=== PATIENT | female | born 1970 | race Caucasian/White ===

== ENCOUNTER 2018-02-11 11:16 | Emergency (ER) | payer OTHER ==
[2018-02-11 11:57] LABS: ADD MAN DIFF? NO
[2018-02-11 11:59] LABS: BASO # 0.1 x10^3/uL (0.0-0.2); BASO % 1 % (0-3); EOS # 0.3 x10^3/uL (0.0-0.7); EOS % 3 % (0-3); HEMATOCRIT 48.1 % (36.0-47.0); HEMOGLOBIN 16.6 g/dL (12.0-15.5); LYMPH # 2.2 x10^3/uL (1.0-4.8); LYMPH % 26 % (24-48); MEAN CORPUSCULAR HEMOGLOBIN 31 pg (25-35); MEAN CORPUSCULAR HGB CONC 35 g/dL (31-37); MEAN CORPUSCULAR VOLUME 91 fL (79-100); MONO # 0.5 x10^3/uL (0.0-1.1); MONO % 6 % (0-9); NEUT # 5.5 x10^3uL (1.8-7.7); NEUT % 64 % (31-73); PLATELET COUNT 360 x10^3/uL (140-400); RED CELL DISTRIBUTION WIDTH 13.4 % (11.5-14.5); WHITE BLOOD COUNT 8.5 x10^3/uL (4.0-11.0)
[2018-02-11 12:07] LABS: INR 0.9 (0.8-1.1); PROTHROMBIN TIME PATIENT 11.7 SEC (11.7-14.0)
[2018-02-11 12:09] LABS: ANION GAP 10 (6-14); BLOOD UREA NITROGEN 15 mg/dL (7-20); BUN/CREATININE RATIO 14 (6-20); CALCIUM 8.8 mg/dL (8.5-10.1); CARBON DIOXIDE 24 mmol/L (21-32); CHLORIDE 103 mmol/L (98-107); CREATININE 1.1 mg/dL (0.6-1.0); GFR 53.2; GLUCOSE 97 mg/dL (70-99); POTASSIUM 3.8 mmol/L (3.5-5.1); SODIUM 137 mmol/L (136-145)
[2018-02-11 12:10] LABS: D-DIMER 0.51 ug/mlFEU (0.00-0.50)
[2018-02-11 12:15] LABS: ALBUMIN 3.6 g/dL (3.4-5.0); ALBUMIN/GLOBULIN RATIO 0.9 (1.0-1.7); ALK PHOS 70 U/L (46-116); ALT (SGPT) 22 U/L (14-59); AST (SGOT) 14 U/L (15-37); TOTAL BILIRUBIN 0.6 mg/dL (0.2-1.0); TOTAL PROTEIN 7.7 g/dL (6.4-8.2)
[2018-02-11 12:17] LABS: TROPONINI < 0.017 ng/mL (0.000-0.055)
[2018-02-11 12:21] LABS: NT-PRO BNP 46 pg/mL (0-124)
[2018-02-11 12:23] LABS: URINE HCG POC HCG NEGATIVE (Negative)
[2018-02-11] MEDS: IPRATRPIUM/ALBUTEROL 0.5/2.5MG 3 ML NEBU. NEB (12:57)
[2018-02-11 13:34] LABS: BILIRUBIN,URINE NEGATIVE (NEG); CLARITY,URINE CLEAR; GLUCOSE,URINE NEGATIVE (NEG); NITRITE,URINE NEGATIVE (NEG); PROTEIN,URINE NEGATIVE (NEG-TRACE); UROBILINOGEN,URINE 0.2 mg/dL (0.2 mg/dL)
[2018-02-11 13:41] LABS: COLOR,URINE STRAW
[2018-02-11 13:43] LABS: BACTERIA,URINE FEW /HPF (0-FEW); RBC,URINE RARE /HPF (0-2); WBC,URINE OCC /HPF (0-4)
[2018-02-11 13:44] LABS: SQUAMOUS EPITHELIAL CELL,UR FEW /LPF
[2018-02-11] MEDS ORDERED: CONTRAST GIVEN. MC (13:45)
[2018-02-11] MEDS: IOHEXOL 300 MG/ML 100ML VIAL. IV (13:46)
== END 2018-02-11 15:13 | disposition home or self-care (01) ==
LOC: ER 11:16
DX: R06.02 Shortness of breath (principal); Z87.891 Personal history of nicotine dependence; E66.9 Obesity, unspecified; Z68.43 Body mass index [BMI] 50.0-59.9, adult; Z88.5 Allergy status to narcotic agent; Z88.8 Allergy status to other drugs, medicaments and biological substances
CPT/HCPCS: 36415; 71045; 71275; 80053; 81001; 81025; 83880; 84484; 85025; 85379; 85610; 93005; 94640; 99285-25; J7620; Q9967

== ENCOUNTER 2019-01-08 17:58 | Emergency (ER) | payer OTHER ==
[~2019-01-08] VITALS: Ht 162.6 cm; Wt 139.3 kg
[2019-01-08] MEDS ORDERED: LORazepam 1 MG TABLET PO ONE (19:15)
[2019-01-08 19:35] LABS: ALBUMIN 3.5 g/dL (3.4-5.0); ALBUMIN/GLOBULIN RATIO 0.9 (1.0-1.7); CREATININE 1.1 mg/dL (0.6-1.0); POTASSIUM 4.2 mmol/L (3.5-5.1); TOTAL BILIRUBIN 0.7 mg/dL (0.2-1.0); TOTAL PROTEIN 7.4 g/dL (6.4-8.2)
[2019-01-08 19:36] LABS: BASO # 0.1 x10^3/uL (0.0-0.2); BASO % 1 % (0-3); EOS # 0.2 x10^3/uL (0.0-0.7); EOS % 2 % (0-3); HEMATOCRIT 44.2 % (36.0-47.0); LYMPH # 2.4 x10^3/uL (1.0-4.8); LYMPH % 29 % (24-48); MEAN CORPUSCULAR HEMOGLOBIN 31 pg (25-35); MEAN CORPUSCULAR HGB CONC 34 g/dL (31-37); MEAN CORPUSCULAR VOLUME 91 fL (79-100); MONO # 0.8 x10^3/uL (0.0-1.1); MONO % 9 % (0-9); NEUT # 4.8 x10^3uL (1.8-7.7); NEUT % 58 % (31-73); PLATELET COUNT 354 x10^3/uL (140-400); RED BLOOD COUNT 4.85 x10^6/uL (3.50-5.40); RED CELL DISTRIBUTION WIDTH 12.9 % (11.5-14.5); WHITE BLOOD COUNT 8.3 x10^3/uL (4.0-11.0)
[2019-01-08 19:52] VITALS: BP 147/79
--- NOTE | 2019-01-08 20:08 | PHYS DOC ---
Past Medical History Past Medical History: Anxiety, Endometriosis, Hypertension, UTI Additional Past Medical Histor: PULMONARY NODULE Past Surgical History: Cholecystectomy Additional Past Surgical Histo: UTERINE ABLASION, D&C Additional Information: 2PPD Alcohol Use: None Drug Use: None Adult General Chief Complaint Chief Complaint: CHEST PAIN HPI HPI Patient is a 48 year old Female who is presenting with chest pain. She's had it for the last 3 days it feels, just dull on the left side associate with anxiety she took Klonopin she is used to taking lorazepam she has been short of breath she has sweaty palms and sweaty feet she just feels terrible overall the pain is current BEEN there pretty constantly for 3 days it is not exertional it is similar to last time she was here in the emergency room she is still smoking. Review of Systems Review of Systems Constitutional: Denies fever or chills [] Eyes: Denies change in visual acuity, redness, or eye pain [] HENT: Denies nasal congestion or sore throat [] GI: Denies abdominal pain, nausea, vomiting, bloody stools or diarrhea [] : Denies dysuria or hematuria [] Musculoskeletal: Denies back pain or joint pain [] Integument: Denies rash or skin lesions [] Neurologic: Denies headache, focal weakness or sensory changes [] Endocrine: Denies polyuria or polydipsia [] All other systems were reviewed and found to be within normal limits, except as documented in this note. Current Medications Current Medications Current Medications Medications (Trade) Dose Ordered Sig/Amaury Start Time Stop Time Status Last Admin Dose Admin Lorazepam (Ativan) 1 mg 1X ONCE 01/08/19 19:15 01/08/19 19:16 DC 01/08/19 19:23 1 MG Allergies Allergies Allergies Coded Allergies Type Severity Reaction Last Updated Verified diphenhydramine Allergy Severe ANAPHYLAXIS 02/11/18 Yes varenicline Allergy Severe stroke like symptoms 01/08/19 Yes clonazepam Allergy Intermediate 01/08/19 Yes hydrocodone Allergy Intermediate ANXIETY 02/11/18 Yes buspirone Adverse Reaction Intermediate dizziness 01/08/19 Yes hydroxyzine Adverse Reaction Intermediate night sweats, tremors 01/08/19 Yes Physical Exam Physical Exam Constitutional: Well developed, well nourished, no acute distress, non-toxic appearance. [] HENT: Normocephalic, atraumatic, bilateral external ears normal, oropharynx moist, no oral exudates, nose normal. [] Eyes: PERRLA, EOMI, conjunctiva normal, no discharge. [] Neck: Normal range of motion, no tenderness, supple, no stridor. [] Cardiovascular:Heart rate regular rhythm, no murmur [] Lungs & Thorax: Bilateral breath sounds clear to auscultation [] Abdomen: Bowel sounds normal, soft, no tenderness, no masses, no pulsatile masses. [] Skin: Warm, dry, no erythema, no rash. [] Back: No tenderness, no CVA tenderness. [] Extremities: No tenderness, no cyanosis, no clubbing, ROM intact, no edema. [] Neurologic: Alert and oriented X 3, normal motor function, normal sensory function, no focal deficits noted. [] Psychologic: Affect normal, judgement normal, mood normal. [] Current Patient Data Vital Signs Vital Signs Date Time Temp Pulse Resp B/P (MAP) Pulse Ox O2 Delivery O2 Flow Rate FiO2 01/08/19 18:30 98.7 84 20 196/107 (136) 96 Room Air 98.7 Lab Values Laboratory Tests Test 01/08/19 18:30 White Blood Count 8.3 x10^3/uL (4.0-11.0) Red Blood Count 4.85 x10^6/uL (3.50-5.40) Hemoglobin 15.0 g/dL (12.0-15.5) Hematocrit 44.2 % (36.0-47.0) Mean Corpuscular Volume 91 fL (79-100) Mean Corpuscular Hemoglobin 31 pg (25-35) Mean Corpuscular Hemoglobin Concent 34 g/dL (31-37) Red Cell Distribution Width 12.9 % (11.5-14.5) Platelet Count 354 x10^3/uL (140-400) Neutrophils (%) (Auto) 58 % (31-73) Lymphocytes (%) (Auto) 29 % (24-48) Monocytes (%) (Auto) 9 % (0-9) Eosinophils (%) (Auto) 2 % (0-3) Basophils (%) (Auto) 1 % (0-3) Neutrophils # (Auto) 4.8 x10^3uL (1.8-7.7) Lymphocytes # (Auto) 2.4 x10^3/uL (1.0-4.8) Monocytes # (Auto) 0.8 x10^3/uL (0.0-1.1) Eosinophils # (Auto) 0.2 x10^3/uL (0.0-0.7) Basophils # (Auto) 0.1 x10^3/uL (0.0-0.2) Maternal Serum HCG Beta Subunit < 1 mIU/mL (0-5) Sodium Level 139 mmol/L (136-145) Potassium Level 4.2 mmol/L (3.5-5.1) Chloride Level 103 mmol/L (98-107) Carbon Dioxide Level 28 mmol/L (21-32) Anion Gap 8 (6-14) Blood Urea Nitrogen 12 mg/dL (7-20) Creatinine 1.1 mg/dL (0.6-1.0) H Estimated GFR (Cockcroft-Gault) 53.0 BUN/Creatinine Ratio 11 (6-20) Glucose Level 96 mg/dL (70-99) Calcium Level 9.0 mg/dL (8.5-10.1) Total Bilirubin 0.7 mg/dL (0.2-1.0) Aspartate Amino Transferase (AST) 16 U/L (15-37) Alanine Aminotransferase (ALT) 25 U/L (14-59) Alkaline Phosphatase 60 U/L (46-116) Troponin I Quantitative < 0.017 ng/mL (0.000-0.055) Total Protein 7.4 g/dL (6.4-8.2) Albumin 3.5 g/dL (3.4-5.0) Albumin/Globulin Ratio 0.9 (1.0-1.7) L Laboratory Tests 01/08/19 18:30 Laboratory Tests 01/08/19 18:30 EKG EKG []EKG shows a normal sinus rhythm rate of 91 no acute ischemic changes noted interpreted by me the time of encounter. No STEMI Radiology/Procedures Radiology/Procedures [] Impressions: Chest x-ray interpreted by me was negative acute. Course & Med Decision Making Course & Med Decision Making Pertinent Labs and Imaging studies reviewed. (See chart for details) []48-year-old female with a long history of anxiety. He's been having some shortness of breath generalized malaise sweaty palms sweaty feet some dull constant 3 days of chest pain since taking Klonopin instead of lorazepam her workup in the ER is negative Ipatient from last year she has a strong history of anxiety this does not sound like acute coronary syndrome lab workup was essentially negative patient was reassured and advised to follow-up with primary care doctor. Priya Disclaimer Dragon Disclaimer This electronic medical record was generated, in whole or in part, using a voice recognition dictation system. Departure Departure Impression: Primary Impression: Chest pain Disposition: 01 HOME, SELF-CARE Condition: STABLE Patient Instructions: Chest Pain (Nonspecific), [id number] DEB CASTILLO MD Jan 08, 2019 20:08
--- NOTE | 2019-01-08 21:01 | RAD ---
PORTABLE CHEST 1V History: CHEST PAIN, SOA. Comparison with February 11, 2018. The heart size is stable and not grossly enlarged. No evidence of pneumothorax, pleural effusion or consolidating infiltrate. IMPRESSION: No evidence of acute infiltrate. Electronically signed by: Mike Singh MD (01/08/2019 8:58 PM) [facility]
--- NOTE | 2019-01-10 08:01 | EKG ---
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
== END 2019-01-08 20:32 | disposition home or self-care (01) ==
LOC: ER 17:58
DX: R07.89 Other chest pain (principal); I10 Essential (primary) hypertension; F17.200 Nicotine dependence, unspecified, uncomplicated; Z88.5 Allergy status to narcotic agent; Z88.8 Allergy status to other drugs, medicaments and biological substances
CPT/HCPCS: 36415; 71045; 80053; 84484; 84702; 85025; 93005; 99283; 99285

== ENCOUNTER 2019-04-02 19:16 | Emergency (ER) | payer OTHER ==
[~2019-04-02] VITALS: Ht 160 cm; Wt 132.4 kg
--- NOTE | 2019-04-02 19:40 | PHYS DOC ---
Past Medical History Past Medical History: Anxiety, Endometriosis, Hypertension, UTI Additional Past Medical Histor: PULMONARY NODULE Past Surgical History: Cholecystectomy Additional Past Surgical Histo: UTERINE ABLASION, D&C Smoking: Greater than 1 pack/day Alcohol Use: None Drug Use: None Adult General Chief Complaint Chief Complaint: CHEST PAIN HPI HPI Patient is a 49yo female who presents with new onset left-sided mid-sternal chest pain of 1 week duration that initially began in the left axillary region. Patient describes the pain as "gouging" and constant w/o radiation. Patient reports an increase in anxiety and panic attacks this past week, which patient relates to intermittent SOB. Review of Systems Review of Systems Constitutional: Denies fever or chills [] Eyes: Denies change in visual acuity, redness, or eye pain [] HENT: Denies nasal congestion or sore throat [] Respiratory: Denies cough or shortness of breath [] Cardiovascular: No additional information not addressed in HPI [] GI: Denies abdominal pain, nausea, vomiting, bloody stools or diarrhea [] : Denies dysuria or hematuria [] Musculoskeletal: Denies back pain or joint pain [] Integument: Denies rash or skin lesions [] Neurologic: Denies headache, focal weakness or sensory changes [] Endocrine: Denies polyuria or polydipsia [] All other systems were reviewed and found to be within normal limits, except as documented in this note. Family History Family History Both mother and father have history of [place] Current Medications Current Medications Current Medications Medications (Trade) Dose Ordered Sig/Amaury Start Time Stop Time Status Last Admin Dose Admin Aspirin (Paige Aspirin) 325 mg 1X ONCE 04/02/19 20:00 04/02/19 20:01 DC 04/02/19 19:47 325 MG Lorazepam (Ativan Inj) 0.5 mg 1X ONCE 04/02/19 22:00 04/02/19 22:01 04/02/19 21:43 0.5 MG Sodium Chloride 1,000 ml @ 1,000 mls/hr 1X ONCE 04/02/19 20:00 04/02/19 20:59 DC 04/02/19 19:46 1,000 MLS/HR Allergies Allergies Allergies Coded Allergies Type Severity Reaction Last Updated Verified diphenhydramine Allergy Severe ANAPHYLAXIS 02/11/18 Yes varenicline Allergy Severe stroke like symptoms 01/08/19 Yes clonazepam Allergy Intermediate 01/08/19 Yes hydrocodone Allergy Intermediate ANXIETY 02/11/18 Yes buspirone Adverse Reaction Intermediate dizziness 01/08/19 Yes hydroxyzine Adverse Reaction Intermediate night sweats, tremors 01/08/19 Yes Physical Exam Physical Exam Constitutional: no acute distress, non-toxic appearance. [] HENT: Normocephalic, atraumatic. [] Eyes: conjunctiva normal, no discharge. [] Neck: Normal range of motion, no tenderness. [] Cardiovascular:Heart rate regular rhythm, no murmur [] Lungs & Thorax: Bilateral breath sounds clear to auscultation [] Abdomen: soft, no tenderness, no masses, no pulsatile masses. [] Skin: Warm, dry, no erythema. [] Back: No tenderness. [] Extremities: no cyanosis, no clubbing, no edema. [] Neurologic: Alert and oriented X 3, no focal deficits noted. [] Psychologic: Affect normal, judgement normal, mood normal. [] Current Patient Data Vital Signs Vital Signs Date Time Temp Pulse Resp B/P (MAP) Pulse Ox O2 Delivery O2 Flow Rate FiO2 04/02/19 19: 98.3 89 24 152/94 (113) 98 Room Air 98.3 Lab Values Laboratory Tests Test 04/02/19 19:25 04/02/19 19:55 04/02/19 21:10 White Blood Count 11.0 x10^3/uL (4.0-11.0) Red Blood Count 5.11 x10^6/uL (3.50-5.40) Hemoglobin 16.1 g/dL (12.0-15.5) H Hematocrit 47.2 % (36.0-47.0) H Mean Corpuscular Volume 92 fL (79-100) Mean Corpuscular Hemoglobin 32 pg (25-35) Mean Corpuscular Hemoglobin Concent 34 g/dL (31-37) Red Cell Distribution Width 13.2 % (11.5-14.5) Platelet Count 365 x10^3/uL (140-400) Neutrophils (%) (Auto) 64 % (31-73) Lymphocytes (%) (Auto) 28 % (24-48) Monocytes (%) (Auto) 6 % (0-9) Eosinophils (%) (Auto) 2 % (0-3) Basophils (%) (Auto) 1 % (0-3) Neutrophils # (Auto) 7.0 x10^3/uL (1.8-7.7) Lymphocytes # (Auto) 3.1 x10^3/uL (1.0-4.8) Monocytes # (Auto) 0.7 x10^3/uL (0.0-1.1) Eosinophils # (Auto) 0.2 x10^3/uL (0.0-0.7) Basophils # (Auto) 0.1 x10^3/uL (0.0-0.2) Prothrombin Time 13.0 SEC (11.7-14.0) Prothrombin Time INR 1.0 (0.8-1.1) PTT 28 SEC (24-38) D-Dimer (Suellen) 0.50 ug/mlFEU (0.00-0.50) Sodium Level 140 mmol/L (136-145) Potassium Level 3.9 mmol/L (3.5-5.1) Chloride Level 101 mmol/L (98-107) Carbon Dioxide Level 25 mmol/L (21-32) Anion Gap 14 (6-14) Blood Urea Nitrogen 9 mg/dL (7-20) Creatinine 0.9 mg/dL (0.6-1.0) Estimated GFR (Cockcroft-Gault) 66.5 BUN/Creatinine Ratio 10 (6-20) Glucose Level 102 mg/dL (70-99) H Calcium Level 9.4 mg/dL (8.5-10.1) Magnesium Level 1.9 mg/dL (1.8-2.4) Total Bilirubin 1.4 mg/dL (0.2-1.0) H Aspartate Amino Transferase (AST) 12 U/L (15-37) L Alanine Aminotransferase (ALT) 23 U/L (14-59) Alkaline Phosphatase 60 U/L (46-116) Creatine Kinase 81 U/L (26-192) Creatine Kinase MB (Mass) 0.5 ng/mL (0.0-3.6) Creatine Kinase MB Relative Index 0.6 % (0-4) Troponin I Quantitative < 0.017 ng/mL (0.000-0.055) < 0.017 ng/mL (0.000-0.055) ID-Lnu-N-Type Natriuretic Peptide 62 pg/mL (0-124) Total Protein 8.0 g/dL (6.4-8.2) Albumin 3.9 g/dL (3.4-5.0) Albumin/Globulin Ratio 1.0 (1.0-1.7) Lipase 155 U/L (73-393) Urine Collection Type Void Urine Color Yellow Urine Clarity Clear Urine pH 6.0 Urine Specific [place] 1.015 Urine Protein Negative mg/dL (NEG-TRACE) Urine Glucose (UA) Negative mg/dL (NEG) Urine Ketones (Stick) 40 mg/dL (NEG) Urine Blood Negative (NEG) Urine Nitrite Negative (NEG) Urine Bilirubin Negative (NEG) Urine Urobilinogen Dipstick 0.2 mg/dL (0.2 mg/dL) Urine Leukocyte Esterase Negative (NEG) Urine RBC 0 /HPF (0-2) Urine WBC Rare /HPF (0-4) Urine Squamous Epithelial Cells Many /LPF Urine Bacteria Few /HPF (0-FEW) Laboratory Tests 04/02/19 19:25 Laboratory Tests 04/02/19 19:25 EKG EKG @1923 Sinus tachycardia 102bpm, NO ST elevation noted, compared to prior EKG per [facility] from 01/08/19 without significant change from prior Radiology/Procedures Radiology/Procedures [] Course & Med Decision Making Course & Med Decision Making Pertinent Labs and Imaging studies reviewed. (See chart for details) [] Dragon Disclaimer Dragon Disclaimer This electronic medical record was generated, in whole or in part, using a voice recognition dictation system. Departure Departure Impression: Primary Impression: Chest pain Additional Impression: Anxiety Disposition: 01 HOME, SELF-CARE Condition: STABLE Referrals: CATRACHITO ESTRADA MD (PCP) FLORI ADAM MD Patient Instructions: Anxiety and Panic Attacks, [id number], Chest Pain (Nonspecific), [id number] The HEART Score for CP Pts HEART Score for Chest Pain: HEART Score for Chest Pain Response (Comments) Value History Slighlty/Non-Suspicious 0 ECG Normal 0 Age >45 - < 65 1 Total 1 Risk Factors: Risk Factors: DM, Current or recent (<one month) smoker, HTN, HLP, family history of CAD, obesity. Risk Scores: Score 0 - 3: 2.5% MACE over next 6 weeks - Discharge Home Score 4 - 6: 20.3% MACE over next 6 weeks - Admit for Clinical Observation Score 7 - 10: 72.7% MACE over next 6 weeks - Early Invasive Strategies PERC Rule for PE PERC Rule for PE PERC Rule for PE Response (Comments) Value Age > 50: No 0 HR > 100: Yes 1 Sa02 on room air <95%: No 0 Unilateral leg swelling: No 0 Hemoptysis: No 0 Recent surgery or trauma: No 0 Prior PE or DVT: No 0 Total 1 Problem Qualifiers Primary Impression: Chest pain Chest pain type: unspecified Qualified Codes: R07.9 - Chest pain, unspecified TIMBO CARRERA DO Apr 02, 2019 19:40
[2019-04-02 19:41] LABS: BASO # 0.1 x10^3/uL (0.0-0.2); BASO % 1 % (0-3); EOS # 0.2 x10^3/uL (0.0-0.7); EOS % 2 % (0-3); HEMATOCRIT 47.2 % (36.0-47.0); HEMOGLOBIN 16.1 g/dL (12.0-15.5); LYMPH # 3.1 x10^3/uL (1.0-4.8); LYMPH % 28 % (24-48); MEAN CORPUSCULAR HEMOGLOBIN 32 pg (25-35); MEAN CORPUSCULAR HGB CONC 34 g/dL (31-37); MEAN CORPUSCULAR VOLUME 92 fL (79-100); MONO # 0.7 x10^3/uL (0.0-1.1); MONO % 6 % (0-9); NEUT % 64 % (31-73); PLATELET COUNT 365 x10^3/uL (140-400); RED BLOOD COUNT 5.11 x10^6/uL (3.50-5.40); RED CELL DISTRIBUTION WIDTH 13.2 % (11.5-14.5)
[2019-04-02 19:51] LABS: CALCIUM 9.4 mg/dL (8.5-10.1); CREATININE 0.9 mg/dL (0.6-1.0); GFR 66.5; POTASSIUM 3.9 mmol/L (3.5-5.1)
[2019-04-02 19:53] LABS: D-DIMER 0.5 ug/mlFEU (0.00-0.50)
[2019-04-02 19:57] LABS: ALBUMIN 3.9 g/dL (3.4-5.0); MAGNESIUM 1.9 mg/dL (1.8-2.4); TOTAL BILIRUBIN 1.4 mg/dL (0.2-1.0)
[2019-04-02] MEDS ORDERED: ASPIRIN 325 MG TABLET PO ONE (20:00)
[2019-04-02] MEDS ORDERED: IV NORMAL SALINE 1000ML BAG 1,000 ML IV ONE (20:00)
[2019-04-02 20:03] LABS: BILIRUBIN,URINE NEGATIVE (NEG); CLARITY,URINE CLEAR; COLOR,URINE YELLOW; NITRITE,URINE NEGATIVE (NEG); PROTEIN,URINE NEGATIVE (NEG-TRACE); UROBILINOGEN,URINE 0.2 mg/dL (0.2 mg/dL)
[2019-04-02 20:12] LABS: BACTERIA,URINE FEW /HPF (0-FEW); RBC,URINE 0 /HPF (0-2); SQUAMOUS EPITHELIAL CELL,UR MANY /LPF; WBC,URINE RARE /HPF (0-4)
[2019-04-02 22:08] VITALS: BP 145/69
--- NOTE | 2019-04-03 05:40 | EKG ---
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
--- NOTE | 2019-04-03 07:45 | RAD ---
EXAM: PA and Lateral Views of the Chest DATE: 04/02/2019 7:56 PM INDICATION: 3 day history of chest pain COMPARISON: 01/08/2019, 02/11/18 FINDINGS: The heart is not enlarged. Mediastinal and hilar contours are normal. Mild patchy medial right lung base airspace opacities are favored to represent atelectasis. No lobar consolidation. No pleural effusion or pneumothorax. IMPRESSION: 1. Mild patchy medial right lung base airspace opacities are favored to represent atelectasis. No lobar consolidation. Electronically signed by: Vinicius Ventura MD (04/03/2019 7:42 AM) [facility]
== END 2019-04-02 22:17 | disposition home or self-care (01) ==
LOC: ER 19:16
DX: R07.2 Precordial pain (principal); F41.9 Anxiety disorder, unspecified; R06.02 Shortness of breath; I10 Essential (primary) hypertension; F17.200 Nicotine dependence, unspecified, uncomplicated; Z88.5 Allergy status to narcotic agent; Z88.8 Allergy status to other drugs, medicaments and biological substances
CPT/HCPCS: 36415; 71046; 80053; 81001; 82553; 83690; 83735; 83880; 84484; 85025; 85379; 85610; 85730; 93005; 96374; 99285; J2060; J7030

== ENCOUNTER 2019-07-18 08:55 | Emergency (ER) | payer OTHER ==
[~2019-07-18] VITALS: Ht 162.6 cm; Wt 128.8 kg
[2019-07-18] MEDS ORDERED: IV NORMAL SALINE 1000ML BAG 1,000 ML IV SCH (09:36)
[2019-07-18] MEDS ORDERED: MORPHINE SULFATE 4 MG/ML VIAL. IV ONE (09:45)
[2019-07-18] MEDS ORDERED: ONDANSETRON PF 4 MG/2 ML VIAL. IV ONE (09:45)
[2019-07-18 09:51] LABS: BILIRUBIN,URINE NEGATIVE (NEG); CLARITY,URINE CLEAR; COLOR,URINE YELLOW; NITRITE,URINE NEGATIVE (NEG); PROTEIN,URINE NEGATIVE (NEG-TRACE); UROBILINOGEN,URINE 0.2 mg/dL (0.2 mg/dL)
[2019-07-18 10:11] LABS: BASO # 0.1 x10^3/uL (0.0-0.2); BASO % 1 % (0-3); EOS # 0.2 x10^3/uL (0.0-0.7); EOS % 3 % (0-3); HEMATOCRIT 44.1 % (36.0-47.0); HEMOGLOBIN 15.4 g/dL (12.0-15.5); LYMPH # 2.4 x10^3/uL (1.0-4.8); LYMPH % 31 % (24-48); MEAN CORPUSCULAR HEMOGLOBIN 32 pg (25-35); MEAN CORPUSCULAR HGB CONC 35 g/dL (31-37); MEAN CORPUSCULAR VOLUME 91 fL (79-100); MONO # 0.6 x10^3/uL (0.0-1.1); MONO % 8 % (0-9); NEUT # 4.3 x10^3/uL (1.8-7.7); NEUT % 57 % (31-73); PLATELET COUNT 333 x10^3/uL (140-400); RED BLOOD COUNT 4.85 x10^6/uL (3.50-5.40); RED CELL DISTRIBUTION WIDTH 13.1 % (11.5-14.5); WHITE BLOOD COUNT 7.6 x10^3/uL (4.0-11.0)
[2019-07-18 10:14] LABS: BACTERIA,URINE FEW /HPF (0-FEW); RBC,URINE 0 /HPF (0-2); SQUAMOUS EPITHELIAL CELL,UR MANY /LPF; WBC,URINE OCC /HPF (0-4)
[2019-07-18 10:30] LABS: CALCIUM 9.1 mg/dL (8.5-10.1); CREATININE 0.9 mg/dL (0.6-1.0); GFR 66.5; POTASSIUM 4.3 mmol/L (3.5-5.1)
[2019-07-18 10:36] LABS: ALBUMIN 3.4 g/dL (3.4-5.0); ALBUMIN/GLOBULIN RATIO 0.8 (1.0-1.7); TOTAL BILIRUBIN 0.8 mg/dL (0.2-1.0); TOTAL PROTEIN 7.8 g/dL (6.4-8.2)
[2019-07-18] MEDS ORDERED: CONTRAST GIVEN. MC PRN (10:45)
[2019-07-18] MEDS ORDERED: IOHEXOL 300 MG/ML 100ML VIAL. IV ONE (10:45)
[2019-07-18 11:30] VITALS: BP 121/69
--- NOTE | 2019-07-18 11:49 | RAD ---
EXAM: Abdomen and pelvis CT with intravenous contrast. HISTORY: Right lower quadrant pain. TECHNIQUE: Computed tomographic images of the abdomen and pelvis were obtained following the administration of 75 cc Omnipaque 300 intravenous contrast. Multiplanar reformatting was performed. *One or more of the following individualized dose reduction techniques were utilized for this examination: 1. Automated exposure control. 2. Adjustment of the mA and/or kV according to patient size. 3. Use of iterative reconstruction technique. COMPARISON: None. FINDINGS: Evaluation of the lower thorax demonstrates lingular and right middle lobe atelectasis or scarring. There is no infiltrate or pleural effusion. There is left greater than right basilar atelectasis. The liver is prominent in size, likely within physiologic limits for patient body habitus. No focal hepatic lesion is seen. The gallbladder is surgically absent. The pancreas, spleen, adrenal glands and kidneys are unremarkable. There is no appendicitis. There is no bowel obstruction or abnormal bowel wall thickening. The bladder and uterus are unremarkable. There is a suspected 1.5 cm dominant right ovarian follicle/follicular cyst. The right ovary is positioned adjacent to the appendix. There is no lymphadenopathy. The aorta is normal in caliber. There is no suspicious osseous lesion. IMPRESSION: 1. No evidence of appendicitis. 2. 1.5 cm dominant right ovarian follicle/follicular cyst. Electronically signed by: Rosalind Mckeon MD (07/18/2019 11:45 AM) [facility]
[2019-07-18] MEDS ORDERED: IBUP-1060 PO (12:09)
--- NOTE | 2019-07-18 12:09 | PHYS DOC ---
Past Medical History Past Medical History: Anxiety, Hypertension Additional Past Medical Histor: PULMONARY NODULE Past Surgical History: Cholecystectomy, Other Additional Past Surgical Histo: ABLATION Alcohol Use: None Drug Use: None Adult General Chief Complaint Chief Complaint: ABDOMINAL PAIN HPI HPI Patient is a 49 year old female with history of anxiety, hypertension, morbid obesity who presents with complaining of abdominal pain. Patient of right lower quadrant pain since yesterday as a constant pain without radiation and rated her pain 8/10. Patient complaining of nausea and anorexia without constipation, diarrhea, urinary symptom except for chronic frequency, fever and chills, history of the same pain. Patient was seen at urgent care today and sent to ER for evaluation of possible appendicitis. Review of Systems Review of Systems Constitutional: Denies fever or chills [] Eyes: Denies change in visual acuity, redness, or eye pain [] HENT: Denies nasal congestion or sore throat [] Respiratory: Denies cough or shortness of breath [] Cardiovascular: No additional information not addressed in HPI [] GI: Reports abdominal pain, nausea, denies vomiting, bloody stools or diarrhea [] : Denies dysuria or hematuria [] Musculoskeletal: Denies back pain or joint pain [] Integument: Denies rash or skin lesions [] Neurologic: Denies headache, focal weakness or sensory changes [] Endocrine: Denies polyuria or polydipsia [] All other systems were reviewed and found to be within normal limits, except as documented in this note. Current Medications Current Medications Current Medications Medications (Trade) Dose Ordered Sig/Amaury Start Time Stop Time Status Last Admin Dose Admin Info (CONTRAST GIVEN -- Rx MONITORING) 1 each PRN DAILY PRN 07/18/19 10:45 07/20/19 10:44 Iohexol (Omnipaque 300 Mg/ml) 75 ml 1X ONCE 07/18/19 10:45 07/18/19 10:46 DC Morphine Sulfate (Morphine Sulfate) 4 mg 1X ONCE 07/18/19 09:45 07/18/19 09:46 DC 07/18/19 09:54 4 MG Ondansetron HCl (Zofran) 4 mg 1X ONCE 07/18/19 09:45 07/18/19 09:46 DC 07/18/19 09:53 4 MG Sodium Chloride 1,000 ml @ 1,000 mls/hr Q1H 07/18/19 09:36 07/18/19 10:35 DC 07/18/19 09:36 1,000 MLS/HR Allergies Allergies Allergies Coded Allergies Type Severity Reaction Last Updated Verified diphenhydramine Allergy Severe ANAPHYLAXIS 02/11/18 Yes varenicline Allergy Severe stroke like symptoms 01/08/19 Yes clonazepam Allergy Intermediate 01/08/19 Yes buspirone Adverse Reaction Intermediate dizziness 01/08/19 Yes hydrocodone Adverse Reaction Intermediate ANXIETY 07/18/19 Yes hydroxyzine Adverse Reaction Intermediate night sweats, tremors 01/08/19 Yes Physical Exam Physical Exam Constitutional: Well developed, well nourished, mild distress, non-toxic appearance, morbidly obese. [] HENT: Normocephalic, atraumatic. Eyes: PERRLA, EOMI, conjunctiva normal, no discharge. [] Neck: Normal range of motion, no tenderness, supple, no stridor. [] Cardiovascular:Heart rate regular rhythm, no murmur [] Lungs & Thorax: Bilateral breath sounds clear to auscultation [] Abdomen: Bowel sounds normal, soft, no tenderness, right lower quadrant guarding, no masses, no pulsatile masses. [] Skin: Warm, dry, no erythema, no rash. [] Back: No tenderness, no CVA tenderness. [] Extremities: No tenderness, no cyanosis, no clubbing, ROM intact, no edema. [] Neurologic: Alert and oriented X 3, no focal deficits noted. [] Psychologic: Affect normal, judgement normal, mood normal. [] Current Patient Data Vital Signs Vital Signs Date Time Temp Pulse Resp B/P (MAP) Pulse Ox O2 Delivery O2 Flow Rate FiO2 07/18/19 09:54 16 07/18/19 09:23 98.3 91 142/92 (109) 97 Room Air 98.3 Lab Values Laboratory Tests Test 07/18/19 09:40 07/18/19 09:59 Urine Collection Type Unknown Urine Color Yellow Urine Clarity Clear Urine pH 7.0 Urine Specific [place] 1.010 Urine Protein Negative mg/dL (NEG-TRACE) Urine Glucose (UA) Negative mg/dL (NEG) Urine Ketones (Stick) Negative mg/dL (NEG) Urine Blood Negative (NEG) Urine Nitrite Negative (NEG) Urine Bilirubin Negative (NEG) Urine Urobilinogen Dipstick 0.2 mg/dL (0.2 mg/dL) Urine Leukocyte Esterase Negative (NEG) Urine RBC 0 /HPF (0-2) Urine WBC Occ /HPF (0-4) Urine Squamous Epithelial Cells Many /LPF Urine Bacteria Few /HPF (0-FEW) White Blood Count 7.6 x10^3/uL (4.0-11.0) Red Blood Count 4.85 x10^6/uL (3.50-5.40) Hemoglobin 15.4 g/dL (12.0-15.5) Hematocrit 44.1 % (36.0-47.0) Mean Corpuscular Volume 91 fL (79-100) Mean Corpuscular Hemoglobin 32 pg (25-35) Mean Corpuscular Hemoglobin Concent 35 g/dL (31-37) Red Cell Distribution Width 13.1 % (11.5-14.5) Platelet Count 333 x10^3/uL (140-400) Neutrophils (%) (Auto) 57 % (31-73) Lymphocytes (%) (Auto) 31 % (24-48) Monocytes (%) (Auto) 8 % (0-9) Eosinophils (%) (Auto) 3 % (0-3) Basophils (%) (Auto) 1 % (0-3) Neutrophils # (Auto) 4.3 x10^3/uL (1.8-7.7) Lymphocytes # (Auto) 2.4 x10^3/uL (1.0-4.8) Monocytes # (Auto) 0.6 x10^3/uL (0.0-1.1) Eosinophils # (Auto) 0.2 x10^3/uL (0.0-0.7) Basophils # (Auto) 0.1 x10^3/uL (0.0-0.2) Sodium Level 138 mmol/L (136-145) Potassium Level 4.3 mmol/L (3.5-5.1) Chloride Level 103 mmol/L (98-107) Carbon Dioxide Level 25 mmol/L (21-32) Anion Gap 10 (6-14) Blood Urea Nitrogen 7 mg/dL (7-20) Creatinine 0.9 mg/dL (0.6-1.0) Estimated GFR (Cockcroft-Gault) 66.5 BUN/Creatinine Ratio 8 (6-20) Glucose Level 95 mg/dL (70-99) Calcium Level 9.1 mg/dL (8.5-10.1) Total Bilirubin 0.8 mg/dL (0.2-1.0) Aspartate Amino Transferase (AST) 10 U/L (15-37) L Alanine Aminotransferase (ALT) 12 U/L (14-59) L Alkaline Phosphatase 80 U/L (46-116) Total Protein 7.8 g/dL (6.4-8.2) Albumin 3.4 g/dL (3.4-5.0) Albumin/Globulin Ratio 0.8 (1.0-1.7) L Lipase 142 U/L (73-393) Laboratory Tests 07/18/19 09:59 Laboratory Tests 07/18/19 09:59 EKG EKG [] Radiology/Procedures Radiology/Procedures [][facility] [address] [place] [address] IMAGING REPORT Signed PATIENT: DEBBIE KENYON ACCOUNT: [id number] : 1970 LOCATION: ER AGE: 49 SEX: F EXAM STATUS: REG ER ORD. PHYSICIAN: ALIE LEONARDO MD REASON: RLQ pain PROCEDURE: CT ABD PELV W/ IV CONTRST ONLY EXAM: Abdomen and pelvis CT with intravenous contrast. HISTORY: Right lower quadrant pain. TECHNIQUE: Computed tomographic images of the abdomen and pelvis were obtained following the administration of 75 cc Omnipaque 300 intravenous contrast. Multiplanar reformatting was performed. *One or more of the following individualized dose reduction techniques were utilized for this examination: 1. Automated exposure control. 2. Adjustment of the mA and/or kV according to patient size. 3. Use of iterative reconstruction technique. COMPARISON: None. FINDINGS: Evaluation of the lower thorax demonstrates lingular and right middle lobe atelectasis or scarring. There is no infiltrate or pleural effusion. There is left greater than right basilar atelectasis. The liver is prominent in size, likely within physiologic limits for patient body habitus. No focal hepatic lesion is seen. The gallbladder is surgically absent. The pancreas, spleen, adrenal glands and kidneys are unremarkable. There is no appendicitis. There is no bowel obstruction or abnormal bowel wall thickening. The bladder and uterus are unremarkable. There is a suspected 1.5 cm dominant right ovarian follicle/follicular cyst. The right ovary is positioned adjacent to the appendix. There is no lymphadenopathy. The aorta is normal in caliber. There is no suspicious osseous lesion. IMPRESSION: 1. No evidence of appendicitis. 2. 1.5 cm dominant right ovarian follicle/follicular cyst. Electronically signed by: Rosalind Pandya MD (07/18/2019 11:45 AM) [place] [id number] DICTATED and SIGNED BY: ROSALIND PANDYA MD DATE: 07/18/19 5951 Course & Med Decision Making Course & Med Decision Making Pertinent Labs and Imaging studies reviewed. (See chart for details) Evaluation of patient in ER showed 49-year-old female patient with complaining of abdominal pain since yesterday. Patient has right lower quadrant guarding with unremarkable CBC, CMP, UA and CT abdomen and pelvis except for a small right ovarian cyst. Patient felt better with treatment in ER. Plan discharge patient home with diagnosis of musculoskeletal abdominal pain. Dragon Disclaimer Dragon Disclaimer This electronic medical record was generated, in whole or in part, using a voice recognition dictation system. Departure Departure Impression: Primary Impression: Abdominal muscle strain Additional Impressions: Ovarian cyst Morbid obesity Disposition: HOME, SELF-CARE (at 1159) Condition: IMPROVED Referrals: CATRACHITO ESTRADA MD (PCP) Patient Instructions: Muscle Strain, Ovarian Cyst Additional Instructions: Drink plenty of liquids Follow-up with your primary care physician in 3-5 days Return to ER if not getting better Apply ice on the affected area Scripts Ibuprofen (IBUPROFEN) 800 Mg Tablet 800 MG PO PRN Q8HRS PRN for INFLAMMATION, #20 TAB Prov: ALIE LEONARDO MD 07/18/19 Problem Qualifiers Primary Impression: Abdominal muscle strain Encounter type: initial encounter Qualified Codes: S39.011A - Strain of muscle, fascia and tendon of abdomen, initial encounter Additional Impressions: Ovarian cyst Laterality: right Qualified Codes: N83.201 - Unspecified ovarian cyst, right side ALIE LEONARDO MD Jul 18, 2019 12:09
== END 2019-07-18 12:45 | disposition home or self-care (01) ==
LOC: ER 08:55
DX: S39.011A Strain of muscle, fascia and tendon of abdomen, initial encounter (principal); N83.201 Unspecified ovarian cyst, right side; E66.01 Morbid (severe) obesity due to excess calories; Z68.42 Body mass index [BMI] 45.0-49.9, adult; R19.7 Diarrhea, unspecified; I10 Essential (primary) hypertension; F41.9 Anxiety disorder, unspecified; Z90.49 Acquired absence of other specified parts of digestive tract; Z88.5 Allergy status to narcotic agent; Z88.8 Allergy status to other drugs, medicaments and biological substances; X58.XXXA Exposure to other specified factors, initial encounter; Y93.89 Activity, other specified; Y92.89 Other specified places as the place of occurrence of the external cause; Y99.8 Other external cause status
CPT/HCPCS: 36415; 74177; 80053; 81001; 83690; 85025; 96361; 96374; 96375; 99285; J2270; J2405; J7030